=== PATIENT | male | born 1990 | race Caucasian/White ===

== ENCOUNTER 2017-08-11 15:07 | Emergency (ER) | payer OTHER ==
[~2017-08-11] VITALS: Ht 167.6 cm; Wt 63.5 kg
[2017-08-11] MEDS ORDERED: BENZ100A PO (15:39)
== END 2017-08-11 15:40 | disposition home or self-care (01) ==
LOC: ER 15:07
DX: J40 Bronchitis, not specified as acute or chronic (principal); F17.200 Nicotine dependence, unspecified, uncomplicated
CPT/HCPCS: 71046; 99283

== ENCOUNTER 2018-01-01 09:24 | Emergency (ER) | payer OTHER ==
[~2018-01-01] VITALS: Ht 167.6 cm; Wt 63.5 kg
[~2018-01-01 09:24] MED LIST: BENZ100A PO
[2018-01-01] MEDS ORDERED: Zofran Odt4 MG SL (09:46)
[2018-01-01] MEDS ORDERED: Catapres0.1 MG PO (09:46)
== END 2018-01-01 09:54 | disposition home or self-care (01) ==
LOC: ER 09:24
DX: F11.23 Opioid dependence with withdrawal (principal); F17.200 Nicotine dependence, unspecified, uncomplicated
CPT/HCPCS: 99283